=== PATIENT | male | born 1995 | race Two or more races ===

== ENCOUNTER 2017-10-14 16:23 | Emergency (ER) | payer OTHER ==
[2017-10-14] MEDS ORDERED: Oseltamivir CAP* 75 MG CAP PO ONE (17:04)
--- NOTE | 2017-10-14 17:42 | ED ---
Lower Extremity - HPI Summary HPI Summary: 22-year-old male presents with fever and body aches since Monday. He makes occasional cough and sore throat. He denies any headache. He denies any neck stiffness. He denies any bowel pain. He denies any nausea vomiting or diarrhea. Has no medical conditions. He denies any chest pain or shortness of breath. He states the sore throat is what is bothering him the most. He has been taking Tylenol for his fever. No one else is sick. - History of Current Complaint Chief Complaint: EDFluSymptoms Stated Complaint: SORE THROAT,CONGESTION Time Seen by Provider: 10/14/17 17:03 Pain Intensity: 3 - Allergies/Home Medications Allergies/Adverse Reactions: Allergies Allergy/AdvReac Type Severity Reaction Status Date / Time No Known Allergies Allergy Verified 10/14/17 16:49 PMH/Surg Hx/FS Hx/Imm Hx Endocrine/Hematology History: Denies: Hx Anticoagulant Therapy Respiratory History: Denies: Hx Asthma Infectious Disease History: No Infectious Disease History: Denies: Traveled Outside the [place] in Last 30 Days - Family History Known Family History: Negative: Respiratory Disease - Social History Alcohol Use: Occasionally Substance Use Type: Reports: Marijuana Smoking Status (MU): Never Smoked Tobacco Review of Systems Positive: Fever, Fatigue Positive: Sore Throat Negative: Chest Pain Positive: Cough. Negative: Shortness Of Breath Negative: Abdominal Pain All Other Systems Reviewed And Are Negative: Yes Physical Exam Triage Information Reviewed: Yes Vital Signs On Initial Exam: Initial Vitals Temp Pulse Resp BP Pulse Ox 99.0 F 74 17 130/68 96 10/14/17 16:29 10/14/17 16:29 10/14/17 16:29 10/14/17 16:29 10/14/17 16:29 Vital Signs Reviewed: Yes Appearance: Positive: Well-Appearing Skin: Positive: Warm, Dry Head/Face: Positive: Normal Head/Face Inspection Eyes: Positive: Normal, EOMI, SAJAN, Conjunctiva Clear ENT: Positive: Normal ENT inspection, Pharynx normal, TMs normal Respiratory/Lung Sounds: Positive: Clear to Auscultation, Breath Sounds Present Cardiovascular: Positive: Normal, RRR Abdomen Description: Positive: Nontender, Soft Bowel Sounds: Positive: Present Musculoskeletal: Positive: Normal Neurological: Positive: Normal Psychiatric: Positive: Normal Diagnostics - Vital Signs Vital Signs Temp Pulse Resp BP Pulse Ox 10/14/17 16:29 99.0 F 74 17 130/68 96 - Laboratory Lab Results: Lab Results 10/14/17 Range/Units 16:33 Influenza A (Rapid) Negative (Negative) Influenza B (Rapid) Positive A (Negative) Lab Statement: Any lab studies that have been ordered have been reviewed, and results considered in the medical decision making process. Lower Extremity Course/Dx - Course Course Of Treatment: 22-year-old male presents with fever and body aches since Monday. He makes occasional cough and sore throat. He denies any headache. He denies any neck stiffness. He denies any bowel pain. He denies any nausea vomiting or diarrhea. Has no medical conditions. He denies any chest pain or shortness of breath. He states the sore throat is what is bothering him the most. He has been taking Tylenol for his fever. No one else is sick. On exam lungs clear to auscultation. Pharynx normal. Flu B+. Patient wants tamiflu so will prescribe such. Patient understands and agrees with plan. - Diagnoses Differential Diagnosis/HQI/PQRI: Positive: Other - influenza, pneumonia, upper resp infection Provider Diagnoses: Influenza Discharge - Sign-Out/Discharge Documenting (check all that apply): Discharge - Discharge Plan Condition: Good Disposition: HOME Prescriptions: Oseltamivir CAP* [Tamiflu CAP*] 75 mg PO BID #9 cap Patient Education Materials: Influenza (ED) Referrals: [facility] [Primary Care Provider] - Additional Instructions: Take Tamiflu twice for 5 days first dose given in ED Take Tylenol and ibuprofen for muscle aches and fever every 6 hours Saline rinse can be used multiple times a day for nasal congestion Use humidifier in room or place bowls of warm water around room for cough Try to drink as tolerated Return to ED if develop any new or worsening symptoms - Billing Disposition and Condition Condition: GOOD Disposition: HOME
[2017-10-14 18:45] VITALS: BP 114/68
== END 2017-10-14 18:44 | disposition home or self-care (01) ==
LOC: ED 16:23
DX: J11.1 Influenza due to unidentified influenza virus with other respiratory manifestations (principal); R50.9 Fever, unspecified; R53.83 Other fatigue; R05 Cough
CPT/HCPCS: 87502; 99282; A9270-GY